=== PATIENT | female | born 1960 | race Two or more races ===

== ENCOUNTER 2017-02-25 11:00 | Day surgery (SDC) | payer BC ==
[2017-02-22 09:48] LABS: HEMATOCRIT 41.4 % (36.0-47.0); HGB HCT DIFFERENCE 0.6; MEAN CORPUSCULAR HEMOGLOBIN 30.2 pg (27.0-33.4); MEAN CORPUSCULAR HGB CONC 33.9 g/dL (32.0-36.0); MEAN CORPUSCULAR VOLUME 89 fl (80-97); RED BLOOD COUNT 4.64 10^6/uL (3.72-5.28); RED CELL DISTRIBUTION WIDTH 13.7 % (11.5-14.0); WHITE BLOOD COUNT 6.6 10^3/uL (4.0-10.5)
[2017-02-22 10:19] LABS: ALANINE AMINOTRANSFERASE 108 U/L (9-52); ALBUMIN 4.5 g/dL (3.5-5.0); ALKALINE PHOSPHATASE 65 U/L (38-126); AMYLASE 136 U/L (30-110); ANION GAP 16 (5-19); ASPARTATE AMINO TRANSFERASE 75 U/L (14-36); BILIRUBIN,DIRECT 0.1 mg/dL (0.0-0.4); BILIRUBIN,TOTAL 0.4 mg/dL (0.2-1.3); BLOOD UREA NITROGEN 14 mg/dL (7-20); CALCIUM 9.7 mg/dL (8.4-10.2); CARBON DIOXIDE 25 mmol/L (22-30); CHLORIDE 103 mmol/L (98-107); CREATININE RESULT 0.77 mg/dL (0.52-1.25); GLUCOSE 113 mg/dL (75-110); POTASSIUM 4.5 mmol/L (3.6-5.0); SODIUM 143.8 mmol/L (137-145)
[~2017-02-25 11:00] MED LIST: ACETAMINOPHEN 325 MG TABLET PO PRN; CEFAZOLIN 1 GM/D5W RTU 1 GM/50 ML RTUPB IV PRN; DEXAMETHASONE SOD PHOSPHATE INJ 4 MG/1 ML VIAL ONE; GLYCOPYRROLATE INJ 0.4 MG/2 ML VIAL ONE; LACTATED RINGERS 1000 ML IV PRN; LIDOCAINE 0.5% INJ-PF (5 MG/ML) 50 ML SDV SUBCUT PRN; NEOSTIGMINE METHYLSULFATE 10 MG/10 ML VIAL ONE; ONDANSETRON HCL INJ/PF 4 MG/2 ML SDV ONE; ROCURONIUM BROMIDE INJ 50 MG/5 ML VIAL IV ONE
[2017-02-25] MEDS ORDERED: BUPIVACAINE HCL 0.25 % INJ/PF (2.5 MG/1 ML) 30 ML VIAL ONE (12:37)
[2017-02-25] MEDS ORDERED: MIDAZOLAM 2 MG/2 ML INJ IV ONE (13:30)
[2017-02-25] MEDS ORDERED: HYDROMORPHONE HCL INJ/PF 2 MG/ML AMPULE ONE (14:27)
[2017-02-25] MEDS ORDERED: EPHEDRINE SULFATE INJ 50 MG/1 ML AMPULE ONE (14:27)
[2017-02-25] MEDS ORDERED: MIDAZOLAM 2 MG/2 ML INJ ONE (14:27)
[2017-02-25] MEDS ORDERED: FENTANYL CITRATE INJ/PF 250 MCG/5 ML AMPULE ONE (14:27)
[2017-02-25] MEDS ORDERED: ACETAMINOPHEN 100 ML IV ONE (14:28)
[2017-02-25] MEDS ORDERED: PROPOFOL INJ 200 MG/20 ML VIAL IV ONE (14:28)
--- NOTE | 2017-02-25 16:29 | Operative Report ---
Operative Report DATE OF SURGERY: 02/25/17 PREOPERATIVE DIAGNOSIS: Symptomatic cholelithiasis. POSTOPERATIVE DIAGNOSIS: Symptomatic cholelithiasis. OPERATION: Laparoscopic cholecystectomy with intraoperative cholangiogram. SURGEON: ANGUS IQBAL ANESTHESIA: GA TISSUE REMOVED OR ALTERED: Gallbladder COMPLICATIONS: None ESTIMATED BLOOD LOSS: minimal INTRAOPERATIVE FINDINGS: Normal intraoperative cholangiogram. PROCEDURE: Informed consent was obtained. Patient was brought to the operating room placed operating table in supine position. After satisfactory induction of general anesthesia, patient's abdomen was prepped and draped in usual sterile fashion. A infraumbilical midline incision was made and dissection carried down to the fascia the peritoneal cavity entered without difficulty. Vogt trocar was inserted. Pneumoperitoneum produced good patient toleration. 5 mm trocar was placed in the subxiphoid location.Two 5 mm trochars were placed in the right subcostal location. The liver appeared normal. The gallbladder was grasped and retracted cephalad over the dome of the liver. The infundibulum of the gallbladder was grasped retracted laterally and inferiorly thus exposing calot's triangle. The cystic duct gallbladder junction was clearly identified and the cystic duct was partially transected allowing the placement of the cholangiocatheter which was clipped in place. Intraoperative cholangiogram was performed. It demonstrated free flow of contrast into the duodenum. There was no evidence of the common bile duct stones. There was narrowing distally of the common bile duct that the radiologist felt to be a normal anatomic variant. The cholangiocatheter was removed and the cystic duct was then clipped and divided. Cystic artery was likewise taken. There was a posterior branch of the cystic artery which was clipped and divided. The gallbladder was taken off the gallbladder bed using the hook electrocautery technique. There was a vessel going into the gallbladder near the top of the gallbladder which was clipped and divided. There was no bile spillage during the case. The gallbladder was removed with an Endobag through the Vogt trocar site fascial defect. Hemostasis appeared excellent. All trochars were removed under the direct vision a laparoscope to ensure hemostasis. The Vogt trocar site fascial defect was closed with interrupted Vicryl sutures. All skin incisions were closed with subcuticular interrupted Monocryl sutures. Marcaine was injected at the port sites. Patient tolerated procedure well no apparent complications and was taken to the recovery area in stable condition.
[2017-02-25] MEDS ORDERED: RINGERS SOLUTION,LACTATED 1,000 ML IV PRN (16:32)
[2017-02-25] MEDS ORDERED: OXYCODONE-ACETAMINOPHEN 5-325 MG TABLET PO PRN (16:32)
[2017-02-25] MEDS ORDERED: ONDANSETRON HCL INJ/PF 4 MG/2 ML SDV IV PRN (16:32)
--- NOTE | 2017-02-25 16:32 | PDOC DISCHARGE SUMMARY ---
Discharge Summary (SDC) - Discharge Final Diagnosis: Symptomatic gallstones Date of Surgery: 02/25/17 Discharge Date: 02/25/17 Condition: Good Treatment or Instructions: Laparoscopic cholecystectomy. May discharge patient home when met discharge criteria. Follow-up with me in 2 weeks. Stay active at home but avoid strenuous activity. May shower in 2 days. Prescriptions: Oxycodone HCl/Acetaminophen [Percocet 5-325 mg Tablet] 1 tab PO ASDIR PRN #25 tablet PRN Reason: Discharge Diet: As Tolerated Discharge Activity: Activity As Tolerated - Stay active but avoid strenuous activity Report the Following to Your Physician Immediately: Yellow Skin, Fever over 101 Degrees, Unusual Bleeding, Redness, Drainage-Foul Smelling
[2017-02-25] MEDS ORDERED: ONDANSETRON HCL INJ/PF 4 MG/2 ML SDV ONE ×2 (16:51→17:18)
[2017-02-25] MEDS: PROMETHAZINE HCL INJ 50 MG/1 ML VIAL IM ONE ×2 (17:50→18:00)
[2017-02-25 19:10] VITALS: BP 151/80
== END 2017-02-25 19:05 | disposition home or self-care (01) ==
LOC: OROUT 11:00
PROVIDERS: ATTEND Surgery
PROC: BF13YZZ Fluoroscopy of Gallbladder and Bile Ducts using Other Contrast (ICD-10-PCS; 2017-02-25)
PROC: 0FT44ZZ Resection of Gallbladder, Percutaneous Endoscopic Approach (ICD-10-PCS; principal; 2017-02-25 13:00)
DX: K80.20 Calculus of gallbladder without cholecystitis without obstruction (principal); E11.9 Type 2 diabetes mellitus without complications; E78.00 Pure hypercholesterolemia, unspecified; M19.90 Unspecified osteoarthritis, unspecified site; R01.1 Cardiac murmur, unspecified; Z79.899 Other long term (current) drug therapy; Z79.84 Long term (current) use of oral hypoglycemic drugs; Z91.040 Latex allergy status
CPT/HCPCS: 86900; 86901; 36415 ×2; 86850; 82962; 82150; 84703; 85027; 81025; 80076; 80048; 88304 ×2; 74300; 47563; J2250; J0690; J3490 ×2; J1100; J3010; J2550; J2405; J2704; J0131; 790; J1170

== ENCOUNTER → 2017-09-22 | Outpatient (CLI) | payer BC ==
--- NOTE | 2017-09-22 14:56 | RADIOLOGY REPORT (SQ) ---
EXAM DESCRIPTION: CAROTID DOPPLER COMPLETED DATE/TIME: 09/22/2017 1:28 pm REASON FOR STUDY: DIZZINESS R42 DIZZINESS AND GIDDINESS COMPARISON: None. TECHNIQUE: Grayscale ultrasound, Doppler velocity and spectra, and color Doppler images acquired of the extra-cranial carotid and vertebral arteries. Images stored on PACS. LIMITATIONS: None. FINDINGS: RIGHT CAROTID CCA Velocities: Within normal limits. ICA Velocities Peak systolic 0.86 m/s. End diastolic 0.34 m/s. Proximal ICA/CCA peak systolic ratio 1.6. Spectra normal. No significant plaque. LEFT CAROTID CCA Velocities: Within normal limits. ICA Velocities Peak systolic 0.96 m/s. End diastolic 0.37 m/s. Proximal ICA/CCA peak systolic ratio 1.5. Spectra normal. No significant plaque. VERTEBRAL ARTERIES: Antegrade flow. Normal waveforms. SUBCLAVIAN ARTERIES: No finding. OTHER: No other significant finding. IMPRESSION: NO HEMODYNAMICALLY SIGNIFICANT STENOSIS. COMMENT: Quality ID #[id number]: Velocity criteria are extrapolated from the diameter data as defined by t he Society of Radiologists in Ultrasound Consensus Conference. Radiology 2003: 229; 340-346. TECHNICAL DOCUMENTATION: JOB ID: [id number] [employer]- All Rights Reserved
== END ==
LOC: SP 12:45
PROVIDERS: ATTEND Physician Assistant
DX: R42 Dizziness and giddiness (principal)
CPT/HCPCS: 93880

== ENCOUNTER 2017-10-09 12:23 | Emergency (ER) | payer BC ==
[2017-10-09] MEDS ORDERED: ONDANSETRON 4 MG TAB.RAPDIS PO ONE (12:53)
[2017-10-09] MEDS ORDERED: IBUPROFEN 800 MG TABLET PO ONE (12:53)
--- NOTE | 2017-10-09 12:59 | ER Document Report ---
ED General - General Chief Complaint: Nausea/Vomiting Stated Complaint: NAUSEA Time Seen by Provider: 10/09/17 12:36 Mode of Arrival: Ambulatory Information source: Patient Notes: Patient presents to the emergency department with complaints of headache nausea and vomiting. Patient reports headache started last night points to her temples and her sinuses. Reports she took some Tylenol and it was helpfull but mariia NESBITT came back. She reports she vomited last night and once this morning. She gives history of recent evaluation with carotid Dopplers that were negative , TSH thyroid study which was negative and EKG. Patient reports 3 weeks ago she experienced the same nausea and vomiting but it has gotten better since that time until yesterday. She denies fever reports chronic diarrhea since she got her gallbladder out. Denies pain with void denies chest pain. Reports she is burping a lot. Reports history of reflux with an EGD last year. Patient has not taken anything for her headache today. She is alert/oriented, in no distress, speech clear. TRAVEL OUTSIDE OF THE [place] IN LAST 30 DAYS: No - HPI Onset: Yesterday Onset/Duration: Sudden Quality of pain: Pressure Severity: Moderate Pain Level: 3 Associated symptoms: Nausea, Vomiting Exacerbated by: Denies Relieved by: Denies Similar symptoms previously: Yes Recently seen / treated by doctor: No - Related Data Allergies/Adverse Reactions: adhesive Allergy (Verified 02/18/17 11:01) RASH, ITCHING latex Allergy (Verified 02/18/17 11:01) RASH, ITCHING Home Medications: Current Home Medications Ezetimibe [Zetia 10 mg Tablet] 10 mg PO DAILY 10/09/17 [History] Past Medical History - General Information source: Patient - Social History Smoking Status: Never Smoker Chew tobacco use (# tins/day): No Frequency of alcohol use: None Drug Abuse: None Lives with: Family Family History: Reviewed & Not Pertinent Patient has suicidal ideation: No Patient has homicidal ideation: No - Past Medical History Cardiac Medical History: Reports: Hx Hypercholesterolemia Denies: Hx Coronary Artery Disease, Hx Heart Attack, Hx Hypertension Pulmonary Medical History: Denies: Hx Asthma, Hx Bronchitis, Hx COPD, Hx Pneumonia Neurological Medical History: Denies: Hx Cerebrovascular Accident, Hx Seizures Endocrine Medical History: Reports: Other - "prediabetes" Renal/ Medical History: Denies: Hx Peritoneal Dialysis GI Medical History: Reports: Hx Gastroesophageal Reflux Disease Musculoskeltal Medical History: Reports Hx Arthritis Past Surgical History: Reports: Hx Cholecystectomy - Immunizations Hx Diphtheria, Pertussis, Tetanus Vaccination: Yes Hx Pneumococcal Vaccination: 07/25/16 Review of Systems - Review of Systems Notes: Review HPI for review of systems., All other systems negative Physical Exam - Vital signs Vitals: Temp Pulse Resp BP Pulse Ox 98.2 F 80 16 160/81 H 100 10/09/17 12:28 10/09/17 12:28 10/09/17 12:28 10/09/17 12:28 10/09/17 12:28 - Notes Notes: PHYSICAL EXAMINATION: GENERAL: Well-appearing and in no acute distress HEAD: Atraumatic, normocephalic. EYES: Pupils equal round , extraocular movements intact, sclera anicteric, conjunctiva are normal. ENT: nares patent, oropharynx clear without exudates. Moist mucous membranes. NECK: Normal range of motion, supple without lymphadenopathy LUNGS: CTAB and equal. No wheezes rales or rhonchi. HEART: Regular rate and rhythm without murmurs ABDOMEN: Soft, no tenderness. No guarding, no rebound BACK: Denies back pain EXTREMITIES: Normal range of motion, no pitting edema. No cyanosis. NEUROLOGICAL: Cranial nerves grossly intact. Normal sensory/motor exams. PSYCH: Normal mood, normal affect. SKIN: Warm, Dry, normal turgor, no rashes or lesions noted Course - Re-evaluation Re-evalutation: 10/09/17 13:57 Patient reports headache is gone after the Motrin. 10/09/17 Instructed on x-ray, medication, no vomiting while here, still feels nauseated, zofran provided. instructed to fu with pcp wednesday - Vital Signs Vital signs: Temp Pulse Resp BP Pulse Ox 97.8 F 79 18 153/87 H 98 10/09/17 14:12 10/09/17 14:12 10/09/17 14:12 10/09/17 14:12 10/09/17 14:12 - Diagnostic Test Radiology reviewed: Image reviewed, Reports reviewed - right maxillary sinusitis Discharge - Discharge Clinical Impression: Elevated blood pressure reading Sinusitis Qualifiers: Sinusitis location: maxillary Chronicity: acute Recurrence: not specified as recurrent Qualified Code(s): J01.00 - Acute maxillary sinusitis, unspecified Nausea & vomiting Qualifiers: Vomiting type: unspecified Vomiting Intractability: non-intractable Qualified Code(s): R11.2 - Nausea with vomiting, unspecified Condition: Stable Disposition: HOME, SELF-CARE Instructions: Antinausea Medication ([facility]), Augmentin ([facility]), Sinusitis ([facility]), Vomiting ([facility]) Additional Instructions: *You have been evaluated for headache, nausea/vomiting, sinusitis *Increase fluid intake as discussed *Take medication as prescribed *Take over the counter nasal decongestant *Monitor your temperature, take Tylenol as indicated *Follow up with a primary care provider within one week for recheck *Return to ED for worsening condition, changes, needs Monitor your blood pressure. Your blood pressure was elevated today. This may be because you were anxious, in pain or because you need medication. It is important to follow up with your primary care provider for full evaluation. Prescriptions: Amoxicillin/Potassium Clav [Augmentin 875-125 Tablet] 1 each PO BID #20 tablet Forms: Elevated Blood Pressure
--- NOTE | 2017-10-09 13:53 | RADIOLOGY REPORT (SQ) ---
EXAM DESCRIPTION: KAUFFMAN VIEW SINUS COMPLETED DATE/TIME: 10/09/2017 1:43 pm REASON FOR STUDY: headache, sinus pain COMPARISON: None. NUMBER OF VIEWS: Single-view paranasal sinuses, kauffman view. LIMITATIONS: None. FINDINGS: Hypoplastic frontal sinuses. Ethmoids grossly clear. Minimal density in the inferior rig ht maxillary sinus may represent minimal fluid. This raises the possibility of acute right maxillary sinusitis. Left maxillary sinus relatively clear. No fracture or radiopaque foreign body. OTHER: No other significant finding. IMPRESSION: As above. Potential mild fluid in the right maxillary sinus. TECHNICAL DOCUMENTATION: JOB ID: [id number]
[2017-10-09] MEDS ORDERED: ONDANSETRON ODT 4 MG TAB (6 TAB/DSPK) PO PRN (14:04)
[2017-10-09 14:23] VITALS: BP 153/87
== END 2017-10-09 14:24 | disposition home or self-care (01) ==
LOC: ER 12:23
DX: J01.00 Acute maxillary sinusitis, unspecified (principal); R11.2 Nausea with vomiting, unspecified; R51 Headache; R19.7 Diarrhea, unspecified; R03.0 Elevated blood-pressure reading, without diagnosis of hypertension; Z90.49 Acquired absence of other specified parts of digestive tract; Z91.048 Other nonmedicinal substance allergy status; Z91.040 Latex allergy status
CPT/HCPCS: 99284; 70210; S0119

== ENCOUNTER → 2017-10-13 | Outpatient (CLI) | payer BC ==
[2017-10-13 15:08] LABS: HEMATOCRIT 39.7 % (36.0-47.0); HEMOGLOBIN 14.1 g/dL (12.0-15.5); HGB HCT DIFFERENCE 2.6; MEAN CORPUSCULAR HGB CONC 35.4 g/dL (32.0-36.0); MEAN CORPUSCULAR VOLUME 88 fl (80-97); RED BLOOD COUNT 4.53 10^6/uL (3.72-5.28); RED CELL DISTRIBUTION WIDTH 12.6 % (11.5-14.0); WHITE BLOOD COUNT 5.6 10^3/uL (4.0-10.5)
[2017-10-13 15:38] LABS: ALANINE AMINOTRANSFERASE 43 U/L (9-52); ALBUMIN 4.5 g/dL (3.5-5.0); ALKALINE PHOSPHATASE 61 U/L (38-126); ANION GAP 12 (5-19); ASPARTATE AMINO TRANSFERASE 31 U/L (14-36); BILIRUBIN,DIRECT 0.1 mg/dL (0.0-0.4); BILIRUBIN,TOTAL 0.2 mg/dL (0.2-1.3); BLOOD UREA NITROGEN 10 mg/dL (7-20); CALCIUM 9.8 mg/dL (8.4-10.2); CARBON DIOXIDE 28 mmol/L (22-30); CHLORIDE 104 mmol/L (98-107); CREATININE RESULT 0.66 mg/dL (0.52-1.25); GLUCOSE 108 mg/dL (75-110); LIPASE 195.7 U/L (23-300); POTASSIUM 4.3 mmol/L (3.6-5.0); TOTAL PROTEIN 7.7 g/dL (6.3-8.2)
== END ==
LOC: OD 14:04
PROVIDERS: ATTEND Internal Medicine Gastroenterology
DX: R11.2 Nausea with vomiting, unspecified (principal)
CPT/HCPCS: 36415; 80048; 80076; 83690; 85027

== ENCOUNTER → 2017-12-07 | Outpatient (CLI) | payer BC ==
--- NOTE | 2017-12-16 09:17 | WOMENS IMAGING REPORT ---
EXAM DESCRIPTION: BILAT SCREENING MAMMO W/CAD COMPLETED DATE/TIME: 12/07/2017 11:41 am REASON FOR STUDY: SCREENING MAMMO Z12.31 ENCNTR SCREEN MAMMOGRAM FOR MALIGNANT NEOPLASM OF AIDA COMPARISON: 2016 TECHNIQUE: Standard craniocaudal and mediolateral oblique views of each breast recorded using digita l acquisition. LIMITATIONS: None. FINDINGS: No masses, calcifications or architectural distortion. No areas of suspicion. Read with the assistance of CAD. .[facility] - R2 Cenova Version 1.3 .[facility] - R2 Cenova Version 1.3 .[facility] - R2 Cenova Version 2.4 .[facility] [place] - R2 Cenova Version 2.4 .[facility] - R2 Oncology Account Specialist Version 9.2 IMPRESSION: NORMAL MAMMOGRAM. BIRADS 1. BREAST DENSITY: c. The breasts are heterogeneously dense, which may obscure small masses. BIRAD: 1 NEGATIVE RECOMMENDATION: ROUTINE SCREENING COMMENT: The patient has been notified of the results by letter per SA requirements. Additional no tification policies are in place for contacting patient with suspicious or incomplete findings. Quality ID #[id number]: The [employer] recommends an annual screening mammogram for women aged 40 years or over. This facility utilizes a reminder system to ensure that all patients receive reminder letters, and/or direct phone calls for appointments. This includes reminders for routine scr eening mammograms, diagnostic mammograms, or other Breast Imaging Interventions when appropriate. Th is patient will be placed in the appropriate reminder system. The [employer] ([employer]) has developed recommendations for screening MRI of the breast s in certain patient populations, to be used in conjunction with mammography. Breast MRI surveillanc e may be appropriate for women with more than 20% lifetime risk of developing breast cancer as deter mined by genetic testing, significant family history of the disease, or history of mantle radiation f or Hodgkins Disease. ACR Practice Guidelines 2008. TECHNICAL DOCUMENTATION: FINDING NUMBER: (1) ASSESSMENT: (1) JOB ID: [id number] [employer]- All Rights Reserved
== END ==
LOC: WI 11:23
PROVIDERS: ATTEND Physician Assistant
DX: Z12.31 Encounter for screening mammogram for malignant neoplasm of breast (principal)
CPT/HCPCS: 77067